=== PATIENT | female | born 1945 | race Caucasian/White ===

== ENCOUNTER 2017-12-02 06:34 | Inpatient (IN) | payer OTHER ==
[2017-11-24 11:42] LABS: BASOPHILS % (AUTO) 0.6 % (0-1); EOSINOPHILS # (AUTO) 0.2 X10'3 (0-0.9); EOSINOPHILS % (AUTO) 3.3 % (0-6); LYMPHOCYTES # (AUTO) 2.7 X10'3 (1.1-4.8); LYMPHOCYTES % (AUTO) 41.3 % (21-51); MEAN CORPUSCULAR HEMOGLOBIN 30.8 PG (27.0-31.0); MEAN CORPUSCULAR HGB CONC 33.3 % (33.0-36.5); MEAN CORPUSCULAR VOLUME 92.6 FL (78-98); MEAN PLATELET VOLUME 9.9 FL (7.4-10.4); MONOCYTES # (AUTO) 0.5 X10'3 (0-0.9); MONOCYTES % (AUTO) 7.5 % (2-12); NEUTROPHILS # (AUTO) 3.1 X10'3 (1.8-7.7); NEUTROPHILS % (AUTO) 47.3 % (42-75); PRE OP HEMATOCRIT 40.8 % (35.0-45.0); PRE OP HEMOGLOBIN 13.6 g/dL (12.0-16.0); PRE OP PLATELET COUNT 230 X10'3 (140-440); RED BLOOD COUNT 4.41 X10'6 (4.20-5.60); RED CELL DISTRIBUTION WIDTH 14.1 % (11.5-14.5)
[2017-11-24 11:44] LABS: CLARITY,URINE CLEAR (Clear); COLOR,URINE YELLOW (Yellow); GLUCOSE, URINE NEGATIVE (Neg); KETONES,URINE NEGATIVE (Neg); LEUKOCYTE ESTERASE ,URINE SMALL (Neg); NITRITES, URINE NEGATIVE (Neg); OCCULT BLOOD,URINE TRACE-INTACT (Neg); PROTEIN,URINE NEGATIVE (Neg); UROBILINOGEN,URINE 0.2 E.U/dL (0.2-1.0)
[2017-11-24 12:00] LABS: UA COLLECTION TYPE CLN CATCH MIDSTREAM
[2017-11-24 12:02] LABS: SQUAMOUS EPITHELIAL CELL,UR MODERATE /LPF (FEW)
[2017-11-24 12:03] LABS: RBC,URINE 0-2 /HPF (0-2); WBC,URINE 0-4 /HPF (0-4)
[2017-11-24 12:04] LABS: BACTERIA,URINE FEW /HPF (Neg); TRANSITIONAL EPI CELLS,URINE FEW /HPF
[2017-11-24 12:08] LABS: ALBUMIN 3.7 G/DL (3.4-5.0); ALBUMIN/GLOBULIN RATIO 1.1 (1.1-1.5); ALKALINE PHOSPHATASE 75 IU/L (46-116); BLOOD UREA NITROGEN 10 MG/DL (7-18); BUN/CREATININE RATIO 11.8 (6.6-38.0); CHLORIDE 104 MMOL/L (99-107); CREATININE 0.85 MG/DL (0.40-0.90); PRE OP ALT 26 U/L (30-65); PRE OP ANION GAP 7 (8-16); PRE OP AST 16 U/L (10-37); PRE OP BILIRUB, TOTAL 0.4 MG/DL (0.0-1.0); PRE OP GLUCOSE 86 MG/DL (70-104); PRE OP POTASSIUM 3.8 MMOL/L (3.4-5.1); PRE OP SODIUM 139 MMOL/L (135-145); TOTAL CARBON DIOXIDE 28.1 MMOL/L (24-32); TOTAL PROTEIN 7.1 G/DL (6.4-8.2); eGFR 66 ML/MIN
[~2017-12-02] VITALS: Ht 165.1 cm; Wt 93.0 kg
[2017-12-02] VITALS (34 sets, daily range): BP systolic 81–120; BP diastolic 45–82
[~2017-12-02 06:34] MED LIST: ASCO10007 PO; ASPI-529 PO; BENA20TA10 PO; CALC-723 PO; CHOL100024 PO; CYAN25003 PO; Cefazolin 2GM/50ML dext iso,osmotic IVPB IV ONE; FOLI-91 PO; LEVO75TA7 PO; VANCOMYCIN INJ 1000 MG in NORMAL SALINE 250ml IV.SOLN IV ONE; famotidine 20mg tablet PO ONE; ringers solution, lacted 1,000 ML IV SCH; tranexamic acid inj. 930 MG in normal saline 100ml IV soln 90.7 ML IV ONE
[2017-12-02] MEDS ORDERED: ketorolac trometh. 30mg/ml inj. ONE (09:28)
[2017-12-02] MEDS ORDERED: vancomycin 1,000mg inj ONE (09:28)
[2017-12-02] MEDS ORDERED: ROPIVAcaine 0.5% (5mg/ml) 30ml vial ONE ×2 (09:29→12:17)
[2017-12-02] MEDS ORDERED: tranexamic acid inj. 930 MG in normal saline 100ml IV soln 90.7 ML IV ONE (09:30)
[2017-12-02] MEDS ORDERED: diphenhydrAMINE 50 mg/ml inj ONE (09:50)
[2017-12-02] MEDS ORDERED: fentaNYL/PF 50MCG/1 ML 2ML syringe ONE (09:52)
[2017-12-02] MEDS ORDERED: MIDAZolam 1mg/ml 10ml vial ONE (09:52)
[2017-12-02] MEDS ORDERED: morphine /PF 1mg/ml 10ml inj. ONE (09:52)
[2017-12-02] MEDS ORDERED: naloxone 2mg/2ml inj 1.7 MG in normal saline 500ml IV soln 500 ML IV PRN (12:24)
[2017-12-02] MEDS ORDERED: ringers solution, lacted 1,000 ML IV SCH (12:24)
[2017-12-02] MEDS ORDERED: morphine 4 MG/ML inj SYRINge IV PRN ×2 (12:25)
[2017-12-02] MEDS ORDERED: diphenhydrAMINE 50 mg/ml inj IV PRN (12:25)
[2017-12-02] MEDS ORDERED: proCHLORperazine 10 MG/2 ml inj IV PRN (12:25)
[2017-12-02] MEDS ORDERED: ondansetron/PF 4mg/2ml inj IV PRN ×3 (12:25→12:55)
[2017-12-02] MEDS ORDERED: meperidine/PF 25mg/ml syringe IV PRN ×3 (12:25)
[2017-12-02] MEDS ORDERED: acetaminophen 325mg tablet PO PRN (12:55)
[2017-12-02] MEDS ORDERED: bisacodyl 10mg suppository rectal RC PRN (12:55)
[2017-12-02] MEDS ORDERED: diphenhydrAMINE 25mg capsule PO PRN ×2 (12:55)
[2017-12-02] MEDS ORDERED: HYDROmorphone 1 mg/ml syringe IV PRN ×2 (12:55→13:10)
[2017-12-02] MEDS ORDERED: magnesium hydroxide 30ml (MOM) UD suspension PO PRN (12:55)
[2017-12-02] MEDS ORDERED: glycopyrrolate 0.2mg/ml inj ONE (14:55)
[2017-12-02] MEDS ORDERED: glycopyrrolate 0.2mg/ml inj IV ONE (15:05)
[2017-12-02] MEDS ORDERED: tranexamic acid inj. 900 MG in normal saline 100ml IV soln 100 ML IV ONE (16:00)
[2017-12-02] MEDS: acetaminophen 325mg tablet PO SCH ×2 (16:14→20:20)
[2017-12-02] MEDS: gabapentin 300mg capsule PO SCH ×2 (16:15→20:20)
[2017-12-02] MEDS: ketorolac tromethamine 15mg/ml inj. IV SCH ×2 (16:17→20:19)
[2017-12-02] MEDS: ceFAZolin 1GM/D5W- ADD-VANTAGE 50 ML IV SCH (17:04)
[2017-12-02] MEDS: potassium cl 20mEq in 1/2 NS 1,000 ML IV SCH ×2 (17:04→20:54)
[2017-12-02] MEDS ORDERED: vancomycin/NS 1 GM ADD-VANTAGE 250 ML IV SCH (20:00)
[2017-12-02] MEDS: sennosides 8.6mg tablet PO SCH (20:20)
[2017-12-03] VITALS (16 sets, daily range): BP systolic 85–116; BP diastolic 34–62
[2017-12-03] MEDS: ceFAZolin 1GM/D5W- ADD-VANTAGE 50 ML IV SCH (00:07)
[2017-12-03] MEDS: acetaminophen 325mg tablet PO SCH ×4 (02:22→20:03)
[2017-12-03] MEDS: ketorolac tromethamine 15mg/ml inj. IV SCH ×2 (02:22→08:00)
[2017-12-03] MEDS: potassium cl 20mEq in 1/2 NS 1,000 ML IV SCH ×2 (02:23→12:54)
[2017-12-03 05:24] LABS: BASOPHILS % (AUTO) 0.1 % (0-1); EOSINOPHILS # (AUTO) 0.1 X10'3 (0-0.9); EOSINOPHILS % (AUTO) 0.9 % (0-6); HEMATOCRIT 31.2 % (35.0-45.0); HEMOGLOBIN 10.6 g/dl (12.0-16.0); LYMPHOCYTES # (AUTO) 1.7 X10'3 (1.1-4.8); LYMPHOCYTES % (AUTO) 16.7 % (21-51); MEAN CORPUSCULAR HEMOGLOBIN 31.1 PG (27.0-31.0); MEAN CORPUSCULAR HGB CONC 34.1 % (33.0-36.5); MEAN CORPUSCULAR VOLUME 91.3 FL (78-98); MONOCYTES # (AUTO) 1.1 X10'3 (0-0.9); MONOCYTES % (AUTO) 10.6 % (2-12); NEUTROPHILS # (AUTO) 7.2 X10'3 (1.8-7.7); NEUTROPHILS % (AUTO) 71.7 % (42-75); PLATELET COUNT 178 X10'3 (140-440); RED BLOOD COUNT 3.41 X10'6 (4.20-5.60); RED CELL DISTRIBUTION WIDTH 14.9 % (11.5-14.5); WHITE BLOOD COUNT 10.1 X10'3 (4.5-11.0)
[2017-12-03] MEDS: oxyCODONE IR 5mg (immed. release) tablet PO PRN ×5 (05:24→23:14)
[2017-12-03 06:00] LABS: ANION GAP 6 (8-16); CHLORIDE 106 MMOL/L (99-107); POTASSIUM 4.2 MMOL/L (3.5-5.1); SODIUM 137 MMOL/L (135-145); TOTAL CARBON DIOXIDE 25.3 MMOL/L (24-32)
[2017-12-03] MEDS: lisinopril 20mg tablet PO SCH (07:51)
[2017-12-03] MEDS: aspirin 325mg tablet PO SCH (07:54)
[2017-12-03] MEDS: cyanocobalamin 500mcg tablet PO SCH (07:54)
[2017-12-03] MEDS: calcium carbonate/vitamin D3 tablet PO SCH (07:55)
[2017-12-03] MEDS: folic acid 1mg tablet PO SCH (07:57)
[2017-12-03] MEDS: gabapentin 300mg capsule PO SCH ×3 (07:57→20:03)
[2017-12-03] MEDS: levoTHYROXINE 75mcg tablet PO SCH (07:57)
[2017-12-03] MEDS: ascorbic acid 500mg tablet PO SCH (07:58)
[2017-12-03] MEDS: vitamin D (cholecalciferol) 1,000 unit tablet PO SCH (07:59)
[2017-12-03] MEDS ORDERED: non-formulary drug (Aspirin (Baby Aspirin) 1 TAB) PO SCH (08:00)
[2017-12-03] MEDS: sennosides 8.6mg tablet PO SCH (20:02)
[2017-12-03] MEDS: celeCOXIB 100mg capsule PO SCH (20:03)
[2017-12-04] MEDS: acetaminophen 325mg tablet PO SCH ×2 (02:00→07:13)
[2017-12-04] MEDS: oxyCODONE IR 5mg (immed. release) tablet PO PRN ×2 (04:25→08:26)
[2017-12-04 05:47] LABS: BASOPHILS % (AUTO) 0.4 % (0-1); EOSINOPHILS # (AUTO) 0.3 X10'3 (0-0.9); EOSINOPHILS % (AUTO) 3.8 % (0-6); HEMOGLOBIN 10.5 g/dl (12.0-16.0); LYMPHOCYTES # (AUTO) 2.6 X10'3 (1.1-4.8); LYMPHOCYTES % (AUTO) 31.2 % (21-51); MEAN CORPUSCULAR VOLUME 91.1 FL (78-98); MEAN PLATELET VOLUME 10.2 FL (7.4-10.4); MONOCYTES # (AUTO) 1.3 X10'3 (0-0.9); MONOCYTES % (AUTO) 15.4 % (2-12); NEUTROPHILS # (AUTO) 4.1 X10'3 (1.8-7.7); NEUTROPHILS % (AUTO) 49.2 % (42-75); PLATELET COUNT 167 X10'3 (140-440); RED CELL DISTRIBUTION WIDTH 14.7 % (11.5-14.5); WHITE BLOOD COUNT 8.4 X10'3 (4.5-11.0)
[2017-12-04 06:00] VITALS: BP 103/60
[2017-12-04] MEDS: potassium cl 20mEq in 1/2 NS 1,000 ML IV SCH ×2 (06:36→06:37)
[2017-12-04] MEDS: lisinopril 20mg tablet PO SCH (06:58)
[2017-12-04] MEDS: ascorbic acid 500mg tablet PO SCH (07:10)
[2017-12-04] MEDS: levoTHYROXINE 75mcg tablet PO SCH (07:11)
[2017-12-04] MEDS: cyanocobalamin 500mcg tablet PO SCH (07:12)
[2017-12-04] MEDS: aspirin 325mg tablet PO SCH (07:13)
[2017-12-04] MEDS: calcium carbonate/vitamin D3 tablet PO SCH (07:13)
[2017-12-04] MEDS: vitamin D (cholecalciferol) 1,000 unit tablet PO SCH (07:13)
[2017-12-04] MEDS: gabapentin 300mg capsule PO SCH (07:14)
[2017-12-04] MEDS: celeCOXIB 100mg capsule PO SCH (07:14)
[2017-12-04] MEDS: folic acid 1mg tablet PO SCH (07:14)
[2017-12-04] MEDS ORDERED: ASPI-1 PO (08:36)
[2017-12-04 10:00] VITALS: BP 118/67
[2017-12-04] MEDS ORDERED: acetaminophen 325mg tablet PO PRN (12:55)
== END 2017-12-04 10:15 | disposition home health service (06) | DRG 470 ==
LOC: PAS IN 06:34 → EDSTATUS 09:45 → ORTHO 4S 15:40
PROVIDERS: ADMIT Orthopaedic Surgery; ATTEND Orthopaedic Surgery
PROC: 3E0T3BZ Introduction of Anesthetic Agent into Peripheral Nerves and Plexi, Percutaneous Approach (ICD-10-PCS; 2017-12-02)
PROC: 8E0YXBZ Computer Assisted Procedure of Lower Extremity (ICD-10-PCS; 2017-12-02)
PROC: 8E0YXCZ Robotic Assisted Procedure of Lower Extremity (ICD-10-PCS; 2017-12-02)
PROC: 0SRD0J9 Replacement of Left Knee Joint with Synthetic Substitute, Cemented, Open Approach (ICD-10-PCS; principal; 2017-12-02 09:45)
DX: M17.12 Unilateral primary osteoarthritis, left knee (principal); D62 Acute posthemorrhagic anemia; E03.9 Hypothyroidism, unspecified; I10 Essential (primary) hypertension; E66.9 Obesity, unspecified; K21.9 Gastro-esophageal reflux disease without esophagitis; Z72.89 Other problems related to lifestyle; Z79.899 Other long term (current) drug therapy; Z68.34 Body mass index [BMI] 34.0-34.9, adult
CPT/HCPCS: 36415; 80051; 80053; 81001; 84443; 85025; 87070; 87088; 97110; 97116; 97161; 97530; A6455; A7000; C1713; C1758; C1776; J0690; J1200; J1885; J2250; J2274; J2795; J3010; J3370; J3490; J7030; J7120

== ENCOUNTER 2022-12-09 08:45 | Inpatient (IN) | payer MEDICARE ==
[2022-12-04 13:22] LABS: BASOPHILS # (AUTO) 0.1 X10'3 (0-0.2); BASOPHILS % (AUTO) 0.9 % (0-1); EOSINOPHILS # (AUTO) 0.2 X10'3 (0-0.9); EOSINOPHILS % (AUTO) 2.5 % (0-6); LYMPHOCYTES # (AUTO) 2.4 X10'3 (1.1-4.8); LYMPHOCYTES % (AUTO) 38.4 % (21-51); MEAN CORPUSCULAR HEMOGLOBIN 30.5 PG (27.0-31.0); MEAN CORPUSCULAR HGB CONC 33.2 g/dL (33.0-36.5); MEAN CORPUSCULAR VOLUME 91.8 FL (78-98); MONOCYTES # (AUTO) 0.5 X10'3 (0-0.9); MONOCYTES % (AUTO) 8.4 % (2-12); NEUTROPHILS # (AUTO) 3.1 X10'3 (1.8-7.7); NEUTROPHILS % (AUTO) 49.8 % (42-75); PRE OP HEMATOCRIT 42.9 % (35.0-45.0); PRE OP HEMOGLOBIN 14.2 g/dL (12.0-16.0); PRE OP PLATELET COUNT 246 X10'3 (140-440); PRE OP WHITE BLOOD COUNT 6.3 10'3 (4.8-10.8); RED BLOOD COUNT 4.67 X10'6 (4.20-5.60); RED CELL DISTRIBUTION WIDTH 14.6 % (11.5-14.5)
[2022-12-04 13:44] LABS: ALBUMIN 3.7 G/DL (3.4-5.0); ALBUMIN/GLOBULIN RATIO 1.1 (1.1-1.5); ALKALINE PHOSPHATASE 82 IU/L (46-116); BLOOD UREA NITROGEN 11 MG/DL (7-18); BUN/CREATININE RATIO 15.3 (10.0-20.0); CALCIUM 9.5 MG/DL (8.5-10.1); CHLORIDE 106 MMOL/L (99-107); CREATININE 0.72 MG/DL (0.40-0.90); PRE OP ALT 23 U/L (30-65); PRE OP ANION GAP 7 (8-16); PRE OP AST 22 U/L (10-37); PRE OP BILIRUB, TOTAL 0.5 MG/DL (0.0-1.0); PRE OP GLUCOSE 95 MG/DL (70-104); PRE OP POTASSIUM 3.7 MMOL/L (3.4-5.1); PRE OP SODIUM 143 MMOL/L (135-145); THYROID STIMULATING HORMONE 1.74 ulU/ml (0.34-4.50); TOTAL PROTEIN 7.2 G/DL (6.4-8.2); eGFR 79 ML/MIN
[2022-12-09] VITALS (19 sets, daily range): BP systolic 84–164; BP diastolic 50–83; PULSE 55–77; RESP 10–18; TEMP 96.6–98.4; O2SAT 93–99
[~2022-12-09] VITALS: Ht 165.1 cm; Wt 95.8 kg
[~2022-12-09 08:45] MED LIST changes: -ASCO10007 PO; -ASPI-529 PO; +ATOR10TA87 PO; -BENA20TA10 PO; +BENA20TA83 PO; -CALC-723 PO; -CHOL100024 PO; -CYAN25003 PO; -Cefazolin 2GM/50ML dext iso,osmotic IVPB IV ONE; -FOLI-91 PO; +LEVO125T PO; -LEVO75TA7 PO; -VANCOMYCIN INJ 1000 MG in NORMAL SALINE 250ml IV.SOLN IV ONE; +cefazolin 2gm/D5W 100mL 100 ML IV ONE; +tranexamic acid 650mg tablet PO ONE; -tranexamic acid inj. 930 MG in normal saline 100ml IV soln 90.7 ML IV ONE; +vancomycin 1,500 MG in NS 300ml IV soln IV ONE
[2022-12-09] MEDS ORDERED: midazolam 1 mg/ML 2ml injection ONE ×2 (10:00→11:02)
[2022-12-09] MEDS ORDERED: fentaNYL/PF 50MCG/1 ML 2ML syringe ONE (10:00)
[2022-12-09] MEDS ORDERED: ketorolac trometh. 30mg/ml inj. ONE (10:04)
[2022-12-09] MEDS ORDERED: ROPIVAcaine 0.5% (5mg/ml) 30ml vial ONE (10:04)
[2022-12-09] MEDS ORDERED: cloNIDine hcl/PF 100mcg/ml inj ONE (10:05)
[2022-12-09] MEDS ORDERED: tetracaine 1% (10mg/ml) pres. free inj. ONE (10:05)
[2022-12-09] MEDS ORDERED: morphine 2 MG/ML inj. syringe IV PRN ×2 (10:20→10:30)
[2022-12-09] MEDS ORDERED: ondansetron/PF 4mg/2ml inj IV PRN ×3 (10:20→14:05)
[2022-12-09] MEDS ORDERED: HYDROmorphone/PF 0.2 MG/ML SYRINGE IV PRN ×2 (10:20)
[2022-12-09] MEDS ORDERED: ringers solution, lacted 1,000 ML IV SCH ×2 (10:20→10:30)
[2022-12-09] MEDS ORDERED: morphine 4 MG/ML inj SYRINge IV PRN (10:30)
[2022-12-09] MEDS ORDERED: fentaNYL/PF 50MCG/1 ML 2ML syringe IV PRN ×2 (10:30)
[2022-12-09] MEDS ORDERED: labetalol 20mg/4ml (5mg/ml) syringe IV PRN (10:30)
[2022-12-09] MEDS ORDERED: hydrALAZINE 20mg/ml inj. IV PRN (10:30)
[2022-12-09] MEDS ORDERED: propofol 10mg/ml 20ml vial IV ONE (11:02)
[2022-12-09] MEDS ORDERED: PHENYLephrine 10mg/ml 5ml injection IV ONE (11:02)
[2022-12-09] MEDS ORDERED: ePHEDrine 50MG/ML INJ. ONE (11:02)
[2022-12-09] MEDS ORDERED: diphenhydrAMINE 50 mg/ml inj ONE (11:02)
[2022-12-09] MEDS ORDERED: ROPIVAcaine 0.5% (5mg/ml) 30ml vial IJ ONE ×2 (12:17→13:32)
[2022-12-09] MEDS ORDERED: magnesium hydroxide 30ml (MOM) UD suspension PO PRN (14:05)
[2022-12-09] MEDS ORDERED: diphenhydrAMINE 25mg capsule PO PRN ×2 (14:05)
[2022-12-09] MEDS ORDERED: naloxone 0.4 mg/ml inj IV PRN (14:05)
[2022-12-09] MEDS ORDERED: HYDROmorphone 1 mg/ml syringe IV PRN (14:05)
[2022-12-09] MEDS ORDERED: oxyCODONE IR 5mg (immed. release) tablet PO PRN ×2 (14:05)
[2022-12-09] MEDS ORDERED: bisacodyl 10mg suppository rectal RC PRN (14:05)
[2022-12-09] MEDS ORDERED: HYDROmorphone inj. 0.5 MG/0.5 ML DISP.SYRIN IV PRN (14:05)
[2022-12-09] MEDS ORDERED: acetaminophen 325mg tablet PO PRN (14:05)
[2022-12-09] MEDS ORDERED: HYDROcodone/acetaminophen 10/325mg tab PO PRN (14:05)
[2022-12-09] MEDS: potassium cl 20mEq in 1/2 NS 1,000 ML IV SCH ×2 (16:20→21:01)
[2022-12-09] MEDS: ceFAZolin/D5W- 1GM premix 50 ML IV SCH (16:35)
[2022-12-09] MEDS ORDERED: vancomycin/NS 1 GM ADD-VANTAGE 250 ML IV SCH (20:00)
[2022-12-09] MEDS: atorvastatin 10mg tablet PO SCH (20:57)
[2022-12-09] MEDS: sennosides 8.6mg tablet PO SCH (20:57)
[2022-12-09] MEDS: HYDROcodone/acetaminophen 10/325mg tab PO PRN (22:43)
[2022-12-10] VITALS (7 sets, daily range): BP systolic 101–123; BP diastolic 57–65; PULSE 66–80; RESP 14–18; TEMP 97.2–98.1; O2SAT 94–97
[2022-12-10] MEDS: ceFAZolin/D5W- 1GM premix 50 ML IV SCH (00:56)
[2022-12-10] MEDS: HYDROcodone/acetaminophen 10/325mg tab PO PRN ×4 (05:52→21:43)
[2022-12-10] MEDS: potassium cl 20mEq in 1/2 NS 1,000 ML IV SCH ×3 (06:06→22:05)
[2022-12-10 07:07] LABS: BASOPHILS % (AUTO) 0.2 % (0-1); EOSINOPHILS % (AUTO) 0.1 % (0-6); HEMATOCRIT 32.8 % (35.0-45.0); HEMOGLOBIN 10.8 g/dl (12.0-16.0); LYMPHOCYTES # (AUTO) 1.4 X10'3 (1.1-4.8); LYMPHOCYTES % (AUTO) 11.7 % (21-51); MEAN CORPUSCULAR HEMOGLOBIN 30.5 PG (27.0-31.0); MEAN CORPUSCULAR VOLUME 92.3 FL (78-98); MEAN PLATELET VOLUME 10.3 FL (7.4-10.4); MONOCYTES # (AUTO) 1.2 X10'3 (0-0.9); MONOCYTES % (AUTO) 10.4 % (2-12); NEUTROPHILS # (AUTO) 9.2 X10'3 (1.8-7.7); NEUTROPHILS % (AUTO) 77.6 % (42-75); PLATELET COUNT 200 X10'3 (140-440); RED BLOOD COUNT 3.55 X10'6 (4.20-5.60); RED CELL DISTRIBUTION WIDTH 14.6 % (11.5-14.5); WHITE BLOOD COUNT 11.9 X10'3 (4.5-11.0)
[2022-12-10 07:12] LABS: ANION GAP 8 (8-16); CHLORIDE 107 MMOL/L (99-107); POTASSIUM 4.5 MMOL/L (3.5-5.1); SODIUM 141 MMOL/L (135-145); TOTAL CARBON DIOXIDE 25.9 MMOL/L (24-32)
[2022-12-10] MEDS: levoTHYROXINE 125mcg tablet PO SCH (07:44)
[2022-12-10] MEDS: aspirin 325mg tablet PO SCH (07:45)
[2022-12-10] MEDS: sennosides 8.6mg tablet PO SCH (21:00)
[2022-12-10] MEDS: atorvastatin 10mg tablet PO SCH (21:43)
[2022-12-11] MEDS: HYDROcodone/acetaminophen 10/325mg tab PO PRN ×3 (01:19→11:38)
[2022-12-11 06:48] LABS: BASOPHILS % (AUTO) 0.4 % (0-1); EOSINOPHILS # (AUTO) 0.2 X10'3 (0-0.9); EOSINOPHILS % (AUTO) 2.2 % (0-6); HEMATOCRIT 30.6 % (35.0-45.0); HEMOGLOBIN 10.2 g/dl (12.0-16.0); LYMPHOCYTES # (AUTO) 2.3 X10'3 (1.1-4.8); LYMPHOCYTES % (AUTO) 28.8 % (21-51); MEAN CORPUSCULAR HGB CONC 33.3 g/dL (33.0-36.5); MEAN CORPUSCULAR VOLUME 92.9 FL (78-98); MONOCYTES # (AUTO) 1.4 X10'3 (0-0.9); MONOCYTES % (AUTO) 17.2 % (2-12); NEUTROPHILS # (AUTO) 4.2 X10'3 (1.8-7.7); NEUTROPHILS % (AUTO) 51.4 % (42-75); PLATELET COUNT 172 X10'3 (140-440); RED BLOOD COUNT 3.29 X10'6 (4.20-5.60); RED CELL DISTRIBUTION WIDTH 14.8 % (11.5-14.5); WHITE BLOOD COUNT 8.1 X10'3 (4.5-11.0)
[2022-12-11] MEDS: aspirin 325mg tablet PO SCH (07:32)
[2022-12-11] MEDS: levoTHYROXINE 125mcg tablet PO SCH (07:32)
[2022-12-11] MEDS: potassium cl 20mEq in 1/2 NS 1,000 ML IV SCH (07:42)
[2022-12-11 08:49] LABS: PLATELET ESTIMATE NORMAL; TOTAL CELLS COUNTED 100
[2022-12-11 08:51] LABS: LARGE PLATELETS FEW
[2022-12-11 11:36] VITALS: BP_SYST 136; PULSE 77
[2022-12-11 11:38] VITALS: RESP 15
[2022-12-11] MEDS ORDERED: lisinopril 20mg tablet PO SCH (12:00)
== END 2022-12-11 16:26 | disposition home or self-care (01) | DRG 468 ==
LOC: PAS IN 09:04 → ORTHO 4S 15:15
PROVIDERS: ADMIT Orthopaedic Surgery; ATTEND Orthopaedic Surgery
PROC: 0SRD0J9 Replacement of Left Knee Joint with Synthetic Substitute, Cemented, Open Approach (ICD-10-PCS; 2022-12-09)
PROC: 0SPD0JZ Removal of Synthetic Substitute from Left Knee Joint, Open Approach (ICD-10-PCS; principal; 2022-12-09 11:02)
DX: T84.093A Other mechanical complication of internal left knee prosthesis, initial encounter (principal); Z96.652 Presence of left artificial knee joint; I95.1 Orthostatic hypotension; Y79.2 Prosthetic and other implants, materials and accessory orthopedic devices associated with adverse incidents; Y92.89 Other specified places as the place of occurrence of the external cause
CPT/HCPCS: 36415; 80051; 80053; 82948; 84443; 85007; 85025; 87070; 87077; 87081; 87186; 97110; 97161; 97530; 97535; A4215; A6446; A6449; A7000; C1713; C1776; G0378; J0690; J0735; J1200; J1885; J2250; J2370; J2405; J2704; J2795; J3010; J3370; J3480; J3490; J7120; Q0163

== ENCOUNTER 2024-03-22 15:05 | Emergency (ER) | payer MEDICARE ==
[~2024-03-22] VITALS: Ht 170.2 cm; Wt 99.8 kg
[~2024-03-22 15:05] MED LIST changes: -cefazolin 2gm/D5W 100mL 100 ML IV ONE; -famotidine 20mg tablet PO ONE; -ringers solution, lacted 1,000 ML IV SCH; -tranexamic acid 650mg tablet PO ONE; -vancomycin 1,500 MG in NS 300ml IV soln IV ONE
[2024-03-22 15:12] VITALS: TEMP 98.3
[2024-03-22] MEDS: meclizine 12.5mg tablet PO ONE (16:38)
[2024-03-22] MEDS: ondansetron 4mg rapidly disintigrating tab PO ONE (16:38)
[2024-03-22] MEDS ORDERED: MECL-302 PO (16:42)
[2024-03-22] MEDS ORDERED: ONDA-245 PO (16:42)
[2024-03-22] MEDS ORDERED: AMOX500C2 PO (16:42)
[2024-03-22 17:02] VITALS: BP 146/84; PULSE 89; RESP 14; O2SAT 96
== END 2024-03-22 17:10 | disposition home or self-care (01) ==
LOC: ER 15:05
DX: R42 Dizziness and giddiness (principal); I10 Essential (primary) hypertension; R11.10 Vomiting, unspecified; Z79.899 Other long term (current) drug therapy
CPT/HCPCS: 99284; J8597